=== PATIENT | male | born 1950 | race Caucasian/White ===

== ENCOUNTER → 2024-12-25 09:49 | Outpatient (REF) | payer MEDICARE, OTHER, SELFPAY | LOC: RAD 09:49 | PROVIDERS: ATTENDING PHYSICIAN Hospitalist | DX: Z87.891 Personal history of nicotine dependence (principal) | CPT/HCPCS: 71271 ==

== ENCOUNTER → 2025-01-17 10:53 | Outpatient (REF) | payer MEDICARE, OTHER, SELFPAY | LOC: RAD 10:53 | PROVIDERS: ATTENDING PHYSICIAN Internal Medicine; FAMILY PHYSICIAN Hospitalist | DX: R91.1 Solitary pulmonary nodule (principal) | CPT/HCPCS: 71250 ==

== ENCOUNTER → 2025-01-23 11:39 | Outpatient (REF) | payer MEDICARE, OTHER, SELFPAY ==
[2025-01-23 13:05] LABS: INR 1.00; PT 13.3 Sec (11.4-14.6)
[2025-01-23 13:06] LABS: APTT 26.5 Sec (23.4-35.0)
== END ==
LOC: REG 11:39
PROVIDERS: ATTENDING PHYSICIAN Internal Medicine Critical Care Medicine; FAMILY PHYSICIAN Hospitalist
DX: Z01.818 Encounter for other preprocedural examination (principal); R06.02 Shortness of breath
CPT/HCPCS: 85610; 85730; 93005

== ENCOUNTER 2025-01-26 06:24 | Day surgery (SDC) | payer MEDICARE, OTHER, SELFPAY ==
--- NOTE | 2025-01-23 14:06 | PTCARENOTE ---
Patients 01/23 ECG abnormal- reviewed by Dr. Fallon- no additional interventions required
[2025-01-26] VITALS (10 sets, daily range): BP systolic 124–141; BP diastolic 69–88; BMI 21.9
[2025-01-26] MEDS: VENTOLIN NEBULES 2.5 MG INH (13:01)
[2025-01-26] MEDS: NSS 500 IV (13:21)
== END 2025-01-26 17:15 | disposition home or self-care (01) ==
LOC: SDS 06:24
PROVIDERS: ATTENDING PHYSICIAN Internal Medicine Critical Care Medicine
DX: R91.1 Solitary pulmonary nodule (principal); R91.8 Other nonspecific abnormal finding of lung field; R59.0 Localized enlarged lymph nodes; R09.89 Other specified symptoms and signs involving the circulatory and respiratory systems
CPT/HCPCS: 31625; 31627; 31654; 31623; 31645; 31624; 71045; 76000; 81459; 87070; 87102; 87205; 88112; 88173; 88305; 88333; 88341; 88342; 94640; C1713; C1887

== ENCOUNTER 2025-01-31 09:58 | Emergency (ER) | payer MEDICARE, OTHER, SELFPAY ==
[2025-01-31 10:03] VITALS: BP 117/78
[2025-01-31 10:18] VITALS: BMI 22.8
[2025-01-31 10:55] VITALS: BP 126/75
--- NOTE | 2025-01-31 11:49 | ED.GENMED ---
History of Present Illness
General
Chief Complaint: Post Operative Problem(s)
Source: patient and spouse
Time Seen by Provider: 01/31/25 10:09
History of Present Illness
History of Present Illness:
Note:
CHIEF COMPLAINT(S)
Right chest wall pain following lung biopsy.
HISTORY OF PRESENT ILLNESS
The patient is a 74-year-old male who presents with right chest wall pain following a recent lung biopsy conducted on Sunday via bronchoscopy. The procedure was performed to investigate a mass with abnormal cells in the right lung. The patient
reports that pain began shortly after discharge from the hospital, intensifying over the night. He describes the pain as persistent and exacerbates with movement but denies any exacerbation with breathing. The patient notes, 'Especially the nights
are a little worse.' Clinical examination indicated mild tenderness in the right chest wall.
SOCIAL HISTORY
The patient has a history of smoking, which he has not quit despite previously attempting multiple times. He attributes his smoking habit to stress in his life.
PHYSICAL EXAM
General: Alert, no acute distress.
Skin: Warm, dry.
Head: Normocephalic, atraumatic.
Neck: Supple, trachea midline.
Eye, Ears, Nose, Mouth, and Throat: Oral mucosa moist.
Cardiovascular: Regular heart rate and rhythm, no murmur observed.
Respiratory: Lungs clear with equal breath sounds bilaterally, mild scattered rhonchi noted.
Gastrointestinal: Abdomen nondistended.
Back: Normal range of motion, normal alignment.
Musculoskeletal: Minor tenderness observed in the right chest wall; normal range of motion and strength.
Neurological: Alert and oriented to person, place, time, and situation, no focal neurological deficit observed.
Psychiatric: Cooperative, appropriate mood and affect.
PLAN
1. Obtain chest X-ray to rule out complications such as pneumothorax or bleeding post-biopsy.
2. Encourage smoking cessation despite previous failed attempts, emphasizing the benefits for lung health.
3. Continue monitoring for changes in symptoms or emergence of respiratory complications.
DIFFERENTIAL DIAGNOSIS
The Differential Diagnosis includes, in no particular order and is not limited to:
1. Post-procedural pain
2. Pneumothorax
3. Pleural effusion
4. Hematoma
5. Rib fracture
6. Musculoskeletal pain
7. Pulmonary embolism
8. Infection at the biopsy site
9. Costochondritis
10. Lung malignancy
EKG
My independent EKG interpretation is:
- Rhythm: Normal sinus rhythm
- Heart Rate: 92 bpm
- [place]: Normal axis
- Intervals: Normal
- Abnormalities: No ischemic changes noted
Disposition:
SUMMARY OF ENCOUNTER
A 74-year-old male presented to the emergency department with right-sided chest pain that worsens with movement. The chest pain began following a recent lung biopsy via bronchoscopy. The pain was determined to be positional and reproducible upon
physical examination. An electrocardiogram and chest X-ray were conducted and showed no pneumothorax or other acute issues. The case was discussed with Dr. Henry, who concurred that there were no acute complications related to the recent
procedure. The patient was counseled on the importance of smoking cessation.
DISPOSITION
Discharged.
ASSESSMENT
Right chest wall pain, likely post-procedural musculoskeletal pain.
EMERGENCY TREATMENTS ADMINISTERED
Nonsteroidal anti-inflammatory drugs (NSAIDs) were provided.
PLAN
1. Prescribe NSAID for pain management.
2. Encourage smoking cessation and provide resources to assist with quitting.
3. Arrange for follow-up in the outpatient setting to reassess pain and monitor for complications.
INDEPENDENT REVIEW OF LABS AND INTERPRETATION OF TESTS
- My independent review of the chest X-ray shows no signs of pneumothorax or pneumonia.
- My independent EKG interpretation is normal sinus rhythm, with no ischemic changes noted.
PATIENT EDUCATION AND COUNSELING
The patient was counseled on the importance of smoking cessation for overall health and recovery process, especially following a lung biopsy.
MEDICATION RECONCILIATION
NSAID was administered for pain management.
MEDICAL DECISION MAKING
- Chronic conditions affecting care include the patients history of smoking.
- Differential Diagnosis: Post-procedural pain, pneumothorax, pleural effusion, hematoma, rib fracture, musculoskeletal pain, pulmonary embolism, infection at the biopsy site, costochondritis, and lung malignancy.
Category 1:
- Tests included an EKG and chest X-ray, both were independently reviewed with normal findings.
Category 3:
- Discussion of management with Dr. Henry who confirmed no acute complications from the recent bronchoscopy.
-Risk:
Consideration of Admission/Observation: Escalation of care including admission/observation was considered given the complexity and risk of the patients presenting complaint, exam findings, and their underlying comorbidities. However, ultimately I
feel the patient is safe for outpatient management with close follow-up. Reasoning: Work-up reassuring, does not reveal any acute life/organ threatening processes, patients symptoms well controlled upon reevaluation, reexamination is reassuring,
vitals are stable, patient agreeable with discharge, reliable for follow-up.
DIAGNOSIS
- Musculoskeletal chest pain post-biopsy (ICD-10: M79.1)
- Nicotine dependence (ICD-10: F17.200)
Phy Exam
Physical Exam
Physical Exam:
.
Course
Orders/Labs/Results
Orders:
Orders
01/31/25 10:03
Electrocardiogram (*1) Urgent
Reason for Study: Chest Pain
EKG- Treatment ONCE
01/31/25 10:10
CR Chest - 2 Views Urgent
Comment:
Reason For Exam: R CP after biopsy
01/31/25 11:49
Ketorolac [Toradol] 30 mg IM NOW STA
Vital Signs
Initial and Last Documented VS:
Initial Vital Signs
Temp Pulse Resp Pulse Ox
97.8 F 97 16 98
01/31/25 10:00 01/31/25 10:00 01/31/25 10:00 01/31/25 10:00
Last Documented Vital Signs
Temp Pulse Resp BP Pulse Ox
98.4 F 81 17 126/75 96
01/31/25 10:55 01/31/25 10:55 01/31/25 10:55 01/31/25 10:55 01/31/25 10:55
*Pulse Oximetry
SaO2: 96
Oxygen Mode of Delivery: Room air
Patient hypoxic: no
*Critical Care Note
Total Time (30-74mins, 75-104mins- exclusive of procedures): Not Applicable
ED Attending Note
-
Portions of this chart may have been created with voice recognition software.� Occasional wrong word or��sound alike� substitutions may have occurred due to the inherent limitations of voice recognition software.
Discharge Plan
Departure
Patient Disposition: Home (Routine Discharge)
Date of Disposition: 01/31/25
Time of Disposition: 11:50
Patient with high blood pressure during this ER visit?: No
Discharge Problem:
Atypical chest pain
Instructions: Chest Pain PCP Follow Up
Prescriptions:
No Action
atorvastatin 80 mg Tablet
80 mg PO DAILY
omeprazole 40 mg Capsule,Delayed Release(Dr/Ec)
40 mg PO DAILY
Referrals:
Katharina Perkins MD [Family Provider, Internal Medicine]
Gallo Pop MD [Active, Pulmonary Medicine]
Activity Restrictions/Additional Instructions:
Please use incentive spirometer 10 times per hour while awake. Return immediately for worsening symptoms, shortness of breath, coughing up blood, fevers or any other concerns. Please see your doctor or Dr. Pop in the next 3 days for follow-up
and reevaluation.
Interventions
Interventions:
*General Assessment Last Done: 01/31/25 10:00
*Neglect/Abuse Screening Last Done: 01/31/25 10:00
*ED COVID-19 Vaccine History Last Done: 01/31/25 10:00
*ED Influenza Vaccine History Last Done: 01/31/25 10:00
[facility] Fall Risk Assessment Tool Last Done: 01/31/25 10:19
*Risk Screen - Suicide (C-SSRS) Last Done: 01/31/25 10:00
ED-Skin Assessment Last Done: 01/31/25 10:19
Discharge Date and Time
Print Language: BARBADIAN
[2025-01-31] MEDS: TORADOL 30 MG IM (11:54)
[2025-01-31 12:02] VITALS: BP 134/70
== END 2025-01-31 12:17 | disposition home or self-care (01) ==
LOC: EMR 09:58
PROVIDERS: EMERGENCY PHYSICIAN Emergency Medicine; FAMILY PHYSICIAN Hospitalist
DX: R07.89 Other chest pain (principal); F17.200 Nicotine dependence, unspecified, uncomplicated; Z71.6 Tobacco abuse counseling; Z98.890 Other specified postprocedural states
CPT/HCPCS: 96372; 99284; 71046; 93005